=== PATIENT | male | born 1990 | race Caucasian/White ===

== ENCOUNTER 2017-01-09 20:41 | Emergency (ER) | payer MEDICAID ==
[~2017-01-09] VITALS: Ht 185.4 cm; Wt 127.0 kg
[~2017-01-09 20:41] MED LIST: BACTRIM DS 8001 TA1 PO; BACTRIM DS 8001 TAB PO; CIPRO 500MG TA500 MG PO; DARVOCET-N 1001 EACH PO; FIORICET 325 MG1 TAB PO; IBU-6600 MG PO; KEFLEX 250MG.250 MG PO; KEFLEX 500MG.500 MG PO; MEDROL 4MG. DOSE4 MG PO; NAPROSYN500 M1 PO; NOMEDS *; PERCOCET 5/3251 EACH PO; PREDNISONE 20MG20 MG PO; RANITIDINE HCL150 MG PO; REGLAN 10 MG TA10 MG PO; ROBAXIN-750750 MG PO; TESSALON PERLE100 MG PO; ULTRAM50 MG PO; VIBRAMYCIN HYC100 MG PO; VICODIN HP1 TAB PO; ZITHROMAX Z-PA250 M1 PO
--- OUTSIDE RECORDS SUMMARY | 2017-01-09 20:55 | External Medical Summary Rpt ---
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 THYROID 2 [facility] STIMULATI INC INC NG HORMONE TSH BLOOD 52805 DESIRAE MERRILL COUNT 2 [facility] COMPLETE INC INC AUTO&AUTO DIFRNTL WBC CYANOCOBA 01966 DESIRAE MERRILL CORETTA 2 [facility] VITAMIN INC INC B-12 RPR&REFIT 71029 [place] G 1 VISION SPECTACLE S EXCEPT APHAKIA FRAMES V2020 [facility] PURCHASES 1 VISION 1 VISN V2103 [place] PLANO 1 VISION TO+/-4.00 D SPHER 0.12-2.00 D CYL EA OPHTH 10968 [place] MEDICAL 1 VISION XM&EVAL COMPRHNSV ESTAB PT 1/> TDAP 31898 DESIRAE MERRILL VACCINE 7 1 IA Super Derivatives [facility] YRS/> IM CENTER CENTER ABEL 40953 DESIRAE MERRILL VACCINE 1 IA ReliOn LIVE FOR CENTER CENTER SUBCUTANE OUS USE MCV4 73928 DESIRAE MERRILL MENACWY 1 IA Super Derivatives [facility] CONJ VACC CENTER CENTER GRPS ACYW-135 IM USE URNLS DIP 77291 DESIRAE MERRILL 1 [facility] STICK/TAB INC INC LET REAGENT AUTO MICROSCOP Y IAADI 64807 DESIRAE DESIRAE INFFLUENZ 9 [facility] A A VIRUS INC INC IAADI 73401 DESIRAE MERRILL INFLUENZA 9 [facility] B VIRUS INC INC IAADI 18897 DESIRAE MERRILL INFFLUENZ 9 [facility] A A VIRUS INC INC IAADI 44151 DESIRAE MERRILL INFLUENZA 9 [facility] [place] [address] DESIRAE MERRILL STREPTOCO 9 [facility] CCUS INC INC GROUP A CUL BACT 66811 DESIRAE MERRILL XCPT 9 [facility] URINE INC INC BLOOD/STO OL AEROBIC ISOL 3D 15604 DESIRAE MERRILL RENDERING 9 [facility] INC INC W/INTERP& POSTPROC DIFF WORK STATION CT PELVIS 57570 DESIRAE MERRILL W/O 9 [facility] [place] [address] [place] ANN-MARIE, ABDOMEN 9 MEDICAL JOSE P W/O IMAGING CONTRAST ASSOCIATE MATERIAL S BLOOD 73288 DESIRAE MERRILL COUNT 9 [facility] COMPLETE INC INC AUTO&AUTO DIFRNTL WBC OPHTH 51997 [facility] MEDICAL 9 VISION REMEDIOS M XM&EVAL COMPRHNSV ESTAB PT 1/> 1 VISN V2103 [place], PLANO 9 VISION REMEDIOS M TO+/-4.00 D SPHER 0.12-2.00 D CYL EA FRAMES V2020 [place], PURCHASES 9 VISION REMEDIOS M FITTING 19629 [place], SPECTACLE 9 VISION REMEDIOS M [place] [address] DESIRAE MERRILL STREPTOCO 9 [facility] CCUS INC INC GROUP A IAADI 00008 DESIRAE MERRILL INFLUENZA 9 [facility] B VIRUS INC INC IAADI 13948 DESIRAE MERRILL INFFLUENZ 9 [facility] A A VIRUS INC INC CLOSURE 8659 DESIRAE MERRILL SKIN&SUBC 8 [facility] UTANEOUS INC INC TISSUE OTHER SITES ANTIBODY 99742 DESIRAE MERRILL HERPES 8 [facility] SMPLX INC INC TYPE 1 ANTIBODY 29889 DESIRAE MERRILL VIRUS NOT 8 [facility] INC INC ELSEWHERE SPECIFIFE D GASTRIC 81077 [place] JESUS, EMPTYING 8 RADIOLOGY J IMAGING STUDY OPHTH 67887 DUC XAVIER, MEDICAL 8 PRATIMA V PRATIMA V XM&EVAL COMPRHNSV ESTAB PT 1/> THER 52414 DESIRAE MERRILL PROPH/DX 8 [facility] NJX EA INC INC SEQL IV P[place] SBST/[place] [address] DESIRAE MERRILL TRACT UPR 8 [facility] W/SM INT INC INC [place] [address] HEATHER JACOBSEN, UPR W/WO 8 MEDICAL JOSE P GLUCOSE IMAGING W/SM ASSOCIATE INTEST Tiffani FOLLW-THR U THER 57542 DESIRAE MERRILL PROPH/DX 8 [facility] NJX INC INC SUBQ/IM IV NFS 85026 DESIRAE MERRILL THER 8 [facility] PROPH/DX INC INC 1ST >1 HR CREATINE 20081 DESIRAE MERRILL KINASE MB 8 [facility] FRACTION INC INC ONLY BASIC 31501 DESIRAE MERRILL METABOLIC 8 [facility] PANEL INC INC CALCIUM TOTAL ECG 15731 DESIRAE MERRILL ROUTINE 8 [facility] ECG INC INC W/LEAST 12 LDS TRCG ONLY W/O I&[place] [address] DESIRAE MERRILL TROPONIN 8 [facility] QUANTITAT INC INC DARRYL ECG 21998 DESIRAE GERSON, ROUTINE 8 [facility] ECG HOSPITAL W/LEAST PROF SERV 12 LDS I&R ONLY RHYTHM 67883 DESIRAE MERRILL ECG 1-3 8 [facility] LEADS INC INC TRACING ONLY W/O I&R RADIOLOGI 12345 DESIRAE MERRILL C EXAM [address] [facility] CHEST 2 INC INC VIEWS FRONTAL&L ATERAL BLOOD 00302 DESIRAE MERRILL COUNT 8 [facility] COMPLETE INC INC AUTO&AUTO DIFRNTL WBC CREATINE 29248 DESIRAE MERRILL KINASE 8 [facility] TOTAL INC INC HEPATBL 03970 HEATHER TINAJEROKDAEN DUX SYS 8 MEDICAL JOSE P IMG IMAGING GLBLDR ASSOCIATE S OBSERVATI 35787 [place] IGGY ON CARE 8 [facility], DISCHARGE INTERNAL ALONSO MED MANAGEMEN T RADEX ABD 10479 HEATHER ELIASUTCHER, COMPL 8 MEDICAL PADMINI AQT ABD IMAGING W/S/E/D ASSOCIATE VIEWS 1 S VIEW CH INITIAL 48797 [place] TERESAE OBSERVATI 8 GORE JR, ON INTERNAL ALONSO CARE/DAY MED 30 [place] [address] DESIRAE MERRILL ABDOMINAL [address] [facility] REAL INC INC TIME W/IMAGE LIMITED SBSQ 30848 [facility] 8 [facility] CARE/DAY URGENT 35 [place] [address] [facility] AMYLASE 8 [facility] COMPREHEN 14159 [facility] SIVE [address] [facility] [address] PELVIS 97352 CN[facility] LUZMARIA MONTALVO, 8 RADIOLOGY ANDREE D W/[place] [address] [facility] LIPASE [address] [place] [address] CN[facility] LUZMARIA MONTALVO, ABDOMEN 8 RADIOLOGY ANDREE D W/CONTRAS T MATERIAL URNLS DIP [address] STICK/TAB LET REAGENT AUTO MICROSCOP Y BLOOD 13514 [facility] COUNT 8 [facility] COMPLETE AUTO&AUTO DIFRNTL WBC SBSQ [address] CARE/DAY URGENT 35 TREATMENT MINUTES ASSOC SBSQ [address] CARE/DAY URGENT 35 TREATMENT MINUTES ASSOC PRESSURIZ 97306 DESIRAE MERRILL ED/NONPRE 8 [facility] SSURIZED INC INC INHALATIO N TREATMENT RADIOLOGI 20978 HEATHER Ramu JACOBSEN EXAM 8 MEDICAL JOSE P CHEST 2 IMAGING VIEWS ASSOCIATE FRONTAL&L S ATERAL ECG 77863 JADIEL FISH 8 [facility] W/LEAST PROF SERV 12 LDS I&R ONLY ECG 39284 DESIRAE MERRILL ROUTINE 8 [facility] ECG INC INC W/LEAST 12 LDS TRCG ONLY W/O I&R RADIOLOGI 95694 HEATHER Ramu MASON EXAM 8 MEDICAL PADMINI CHEST 2 IMAGING VIEWS ASSOCIATE FRONTAL&L S ATERAL RADIOLOGI 62972 HEATHER Ramu JACOBSEN 8 MEDICAL JOSE P EXAMINATI IMAGING ON KNEE ASSOCIATE 1/2 VIEWS S IAADIADOO 95813 [place] FORTINOS[place], 8 [facility] [place] [address] DESIRAE DESIRAE STREPTOCO 8 [facility] CCUS INC INC GROUP A RADIOLOGI 50246 DESIRAE DESIRAE C 8 [facility] EXAMINATI INC INC ON TIBIA & FIBULA 2 VIEWS RADIOLOGI 99639 DESIRAE DESIRAE C 8 [facility] EXAMINATI INC INC ON KNEE 3 VIEWS APPLICATI 93.54 GAMAL A ON OF COLETTE GLORIA MD Encounters Encounter Start End Date Code Location Performer Type Date EMERGENCY 41620 DESIRAE 5 5 [facility] DEPARTMEN INC T VISIT LOW/MODER SEVERITY HOSPITAL DESIRAE - [address] [facility] OUTPATIEN INC T EMERGENCY 91105 JIAN GUERRA DEPT 4 4 VISIT HIGH SEVERITY& THREAT FUNCJ EMERGENCY 56517 BARRY HITCHCOCK 4 4 [facility]AN[facility]IT [facility] DEPARTMEN T VISIT HIGH/URGE NT SEVERITY EMERGENCY 72464 BARRY HITCHCOCK 4 4 [facility] DEPARTMEN T VISIT MODERATE SEVERITY EMERGENCY 57621 ALFARIS ALFARIS 4 4 [facility] DEPARTMEN T VISIT HIGH/URGE NT SEVERITY Emergency JJ Alfredo MD (ER) 3 22:25 3 00:38 [facility] Emergency JJ Hitchcock MD (ER) 3 22:46 3 00:04 [facility] Emergency JJ Hitchcock MD (ER) 3 20:53 3 21:33 [facility] Emergency JJ Alfredo MD (ER) 3 09:33 3 09:58 [facility] Emergency JJ ALVARENGA (ER) 3 11:23 3 14:30 [facility] Emergency JJ Giron (ER) 3 07:30 3 07:34 [facility] Alonso E. Emergency JJ CHUN MD (ER) 3 12:43 3 14:48 [facility] OFFICE 31925 CLAUDIARICKIE TAYLOR OUTPATIEN 2 2 SANDER SANDER T VISIT 10 MINUTES OFFICE 40489 BESSON BESSON OUTPATIEN 2 2 ALLI ALLI T VISIT 15 MINUTES OFFICE 59848 BESSON BESSON OUTPATIEN 2 2 ALLI ALLI T VISIT 15 MINUTES OFFICE 57048 BESSON BESSON OUTPATIEN 2 2 ALLI ALLI T VISIT 15 MINUTES OFFICE 51784 BESSON BESSON OUTPATIEN 2 2 ALLI ALLI T VISIT 15 MINUTES OFFICE 50420 BESSON BESSON OUTPATIEN 2 2 ALLI ALLI T VISIT 15 MINUTES EMERGENCY 28353 [facility] DEPT 2 2 HOSP VISIT [facility] HIGH LE SEVERITY& THREAT [facility] - 2 2 HOSPITAL OUTPATIEN & T STMARY'S H EMERGENCY 61282 OZYUREKOG VIDYAKOG 2 2 EVELYN LENNOX EVELYN LENNOX DEPARTMEN T VISIT HIGH/URGE NT SEVERITY EMERGENCY 48971 [facility] 2 2 HOSPITAL DEPARTMEN & T VISIT STMARY'S MODERATE H SEVERITY OFFICE 18153 MCKEMIE MCKEMIE OUTPATIEN 2 2 JR LEIA JR LEIA T VISIT 15 MINUTES OFFICE 24311 BESSON BESSON OUTPATIEN 2 2 ALLI ALLI T VISIT 15 MINUTES HOSPITAL DESIRAE - 2 2 [facility] OUTPATIEN INC T OFFICE 91268 BESSON BESSON OUTPATIEN 2 2 ALLI ALLI T VISIT 25 MINUTES HOSPITAL DESIRAE - 1 1 [facility] OUTPATIEN INC T EMERGENCY 52264 HENRY HITCHCOCK 1 1 EMERGENCY RANJIT DEPARTMEN SERVICES T VISIT HIGH/URGE NT SEVERITY EMERGENCY 84108 DESIRAE [address] [facility] DEPARTMEN INC T VISIT LIMITED/M INOR PROB OFFICE 52435 [place] BESSON OUTPATIEN 1 1 GORE ALLI T VISIT INTERNAL 15 MED MINUTES HOSPITAL DESIRAE - [address] [facility] OUTPATIEN INC T EMERGENCY 19671 DESIRAE [address] [facility] DEPARTMEN INC T VISIT MODERATE SEVERITY EMERGENCY 08852 HENRY SHI 1 1 EMERGENCY DEPARTMEN SERVICES T VISIT HIGH/URGE NT SEVERITY OFFICE 20241 [place] CLAUDIA OUTPATIEN 0 0 KELSEA BOUCHER T VISIT INTERNAL 15 MEDI MINUTES EMERGENCY 97534 HENRY HITCHCOCK DEPT 0 0 EMERGENCY RANJIT VISIT SERVICES HIGH SEVERITY& THREAT FUNCJ OFFICE 14500 [place] ANUSHA OUTPATIEN 0 0 KELSEA NAN T VISIT INTERNAL 25 MEDI MINUTES OFFICE 64603 [place] BESSON, OUTPATIEN 0 0 KELSEA RICKY A T VISIT INTERNAL 15 MED MINUTES OFFICE 22161 [place] MCKEMIE OUTPATIEN 0 0 KELSEA SALDANA, T VISIT INTERNAL ALONSO F 15 MED MINUTES OFFICE 09630 [place] BESSON, OUTPATIEN 9 9 KEL[place] RICKY A T VISIT INTERNAL 15 MED MINUTES HOSPITAL DESIRAE - 9 9 [facility] OUTPATIEN INC T HOSPITAL DESIRAE - 9 9 [facility] OUTPATIEN [facility] T OFFICE 52179 [place] LANIEMIE OUTPATIEN 9 9 KELSEA SALDANA, T VISIT INTERNAL ALONSO F 15 MED MINUTES EMERGENCY 83145 HENRY ANN, DEPT 9 9 EMERGENCY MATTHEW VISIT SERVICES O HIGH SEVERITY& ASSOCIATE THREAT S FUNCJ EMERGENCY 23735 DESIRAE [address] [facility] DEPARTMEN [facility] T VISIT MODERATE SEVERITY HOSPITAL DESIRAE - [address] [facility] OUTPATIEN [facility] T OFFICE 31546 [place] KAYLEY OUTPATIEN 9 9 GORE RICKY Pham T VISIT INTERNAL 15 MED MINUTES OFFICE 54722 [place] JAIME OUTPATIEN 9 9 [place] VARGAS T VISIT INTERNAL 15 MED MINUTES HOSPITAL DESIRAE - [address] [facility] OUTPATIEN [facility] T EMERGENCY 93105 DESIRAE [address] [facility] T VISIT LOW/MODER SEVERITY HOSPITAL DESIRAE - [address] [facility] OUTPATIEN [facility]ITAL DESIRAE - [address] [facility] OUTPATIEN [facility] T OFFICE 24771 [place] TERESAE OUTPATIEN 8 8 [place]EL[place] SALDANA T VISIT INTERNAL ALONSO F 10 MED MINUTES OFFICE 16939 [place] KAYLEY OUTPATIEN 8 8 GORE RICKY Pham T VISIT INTERNAL 25 MED MINUTES HOSPITAL AKIRAON - 8 8 [facility] T OFFICE 93022 ARACELI BOSTON- JR 8 8 BERYL CORDOBA ION KAREN KAREN NEW/ESTAB PATIENT 60 MIN OFFICE 78075 [facility] T VISIT INC 10 MINUTES HOSPITAL DESIRAE - [address] [facility] OUTPATIEN INC T OFFICE 38989 ALLRAN ALLRAN CONSULTAT 8 8 JR LES, CORRIE Roman NEW/ESTAB PATIENT 40 MIN HOSPITAL DESIRAE - 8 8 [facility] OUTPATIEN INC T EMERGENCY 61243 DESIRAE ANN, 8 8 [facility] O T VISIT PROF SERV MODERATE SEVERITY EMERGENCY 23288 DESIRAE DEPT 8 8 [facility] VISIT INC HIGH SEVERITY& THREAT FUNCJ OFFICE 58226 [place] [facility] 8 8 GORE RICKY A T VISIT INTERNAL 15 MED MINUTES OFFICE 09500 JARETH SANDOVAL [facility] [address] [facility] T VISIT INTERNAL 15 MED MINUTES HOSPITAL DESIRAE - [address] [facility] OUTPATIEN INC T EMERGENCY 33248 [facility] 8 [facility] C[facility] T VISIT PHYSICANS HIGH/URGE [place] NT PSC SEVERITY EMERGENCY 63148 [facility] 8 8 [facility] T VISIT MODERATE SEVERITY HOSPITAL [facility] - 8 8 [facility] T OFFICE 02775 [place] KAYLEY [facility] 8 8 GORE RICKY A T VISIT INTERNAL 15 MED MINUTES HOSPITAL DESIRAE - [address] [facility] OUTPATIEN INC T EMERGENCY 12809 DESIRAE [address] [facility] T VISIT MODERATE SEVERITY EMERGENCY 64086 DESIRAE [address] [facility] INC T VISIT LOW/MODER SEVERITY OFFICE [address] [facility] 8 8 JUSTIN JUSTIN T VISIT 15 MINUTES HOSPITAL DESIRAE - [address] [facility] OUTPATIEN INC T OFFICE 75735 [place] IGGY CHILDRESS 8 8 KEL[place] SALDANA T VISIT INTERNAL ALONSO F 15 MED MINUTES OFFICE 04740 FIOR GUTIERREZ 8 8 KELSEA Pham T VISIT INTERNAL 15 MED MINUTES HOSPITAL DESIRAE - [address] [facility] - 8 8 [facility] EMERGENCY 51577 DESIRAE 8 8 [facility] VISIT LIMITED/M INOR PROB EMERGENCY 03419 DESIRAE AGOSTO, 8 8 [facility] T VISIT PROF LILIANA TAVERA/MODER SEVERITY OFFICE [address] OUTPATIEN 8 8 JUSTIN ANDERSON T VISIT 15 MINUTES HOSPITAL DESIRAE - 8 8 [facility]
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
--- OUTSIDE RECORDS SUMMARY | 2017-01-09 20:58 | External Medical Summary Rpt ---
Author Author , KELTON MELARA Address Unknown Phone [email or web address] Data Care Team Providers Care Gis Instructor Name Role Phone ALFARIS MOH, ALFARIS Unavailable Unavailable J CARLOS BAKER JR, Unavailable Unavailable J CARLOS KHAN JR, J, Unavailable Unavailable Petr LEE CONRAD, BETINA, CONRAD, Unavailable Unavailable BETINA BESSON ALLI, BESSON Unavailable Unavailable ALLI BESSON ALLI, BESSON Unavailable Unavailable ALLI RICKY ZALDIVAR A, Unavailable Unavailable KAYLEY RICKY A JEMIMA ZARATE, JEMIMA ZARATE Unavailable Unavailable [facility]IN [facility], Unavailable Unavailable [facility] ISABELLA PAL, Unavailable Unavailable ISABELLA PAL ISABELLA PAL, Unavailable Unavailable ISABELLA PAL ISABELLA PADMINI, Unavailable Unavailable ISABELLA, PADMINI [facility], Unavailable Unavailable [facility] CLAUDIA SANDER, Unavailable Unavailable CLAUDIA SANDER CLAUDIA SANDER, Unavailable Unavailable CLAUDIA SANDER BARRY RANJIT, BARRY Unavailable Unavailable RANJIT BARRY RANJIT, BARRY Unavailable Unavailable RANJIT ANGE SHI, ANGE JOSE GUADALUPE Unavailable Unavailable ANDREE MONTALVO, Unavailable Unavailable ANDREE MONTALVO [facility] Unavailable Unavailable [place], [facility] Unavailable Unavailable [place], [facility] Unavailable Unavailable INC, [facility] Unavailable Unavailable HOSPITAL P, [facility] SAM SANDOVAL HARVEY, Unavailable Unavailable SAM VASQUEZ, DICKSON VASQUEZ Unavailable Unavailable ANUSHA KARYNA, ANUSHA Unavailable Unavailable NAN ARACELIBERYL, Unavailable Unavailable DEREK STAFFORD, [facility] Unavailable Unavailable [place], [facility] & Unavailable Unavailable [facility], [facility] Unavailable Unavailable [facility], [facility] GERSON, NAYELI E, Unavailable Unavailable GERSON, NAYELI E [facility] Unavailable Unavailable [facility], [facility] Unavailable Un[facility] [place] JUAN, CALVIN Unavailable Unavailable JUAN [facility] Unavailable Unavailable SERVICES, [facility] BROCK CLA, Unavailable Unavailable BROCK CLA BROCK CLA, Unavailable Unavailable BROCK CLA MCKEMIE JR LEIA, Unavailable Unavailable MCKEMIE JR LEIA MCKEMIE JR LEIA, Unavailable Unavailable MCKEMIE JR LEIA MCKEMIE JR, CHANDAN Unavailable Unavailable F, IGGY SALDANA, CHANDAN F TESFAYE BARONE, Unavailable Unavailable TESFAYE BARONE EMMETT P, Unavailable Unavailable JOSE JACOBSEN OZYUREKOGLU LENNOX, Unavailable Unavailable OZYUREKOGLU LENNOX OZYUREKOGLU LENNOX, Unavailable Unavailable OZYUREKOGLU LENNOX [id number], Unavailable Unavailable [id number] Unavailable Unavailable [id number] [address] [id number], [facility] [address] # [id number] [facility], Unavailable Unavailable [facility] JOHN T, SURENDRA, Unavailable Unavailable PRATIMA DANIELSON V, Unavailable Unavailable PRATIMA XAVIER V SOKAN, MATTHEW O, Unavailable Unavailable SOKAN, MATTHEW O [facility] Unavailable Unavailable [facility] JIAN GUERRA, JIAN GUERRA Unavailable Unavailable JIAN GUERRA, JIAN GUERRA Unavailable Unavailable Purpose Continuity of Care Document - 08-25-2007 through 2016 Problems Code Diagnosis DOS Provider Status 7231 CERVICALGIA 06-22-2014 [facility] 7245 UNSPECIFIED 06-22-2014 [facility] P E8889 UNSPECIFIED 06-22-2014 [facility] P 5990 URINARY 10-11-2013 JIAN GUERRA TRACT INFECTION SITE NOT SPECIFIED 88698 HEMATURIA 10-11-2013 ISABELLA UNSPECIFIED PAL 7881 DYSURIA 10-11-2013 JIAN GUERRA 67409 ABDOMINAL 10-11-2013 ISABELLA PAIN, PAL UNSPECIFIED SITE 37978 CHEST PAIN 09-22-2013 ISABELLA UNSPECIFIED PAL 79804 OTHER CHEST 09-22-2013 BARRY RANJIT PAIN 63048 ASTHMA, 09-14-2013 BARRY RANJIT UNSPECIFIED , UNSPECIFIED STATUS 5110 PLEURISY 09-14-2013 BARRY RANJIT WITHOUT MENTION EFFUS/CURRE NT TB 7804 DIZZINESS 09-14-2013 BARRY RANJIT AND GIDDINESS 8832 OPEN WOUND 01-03-2012 CLAUDIA OF FINGER SANDER WITH TENDON INVOLVEMENT V5832 ENCOUNTER 10-28-2011 BESPRISCILLA ALLI FOR REMOVAL OF SUTURES 9594 INJURY 10-25-2011 BESSON ALLI OTHER AND UNSPECIFIED HAND EXCEPT FINGER 8830 OPEN WOUND 10-17-2011 BROCK FINGER CLA WITHOUT MENTION COMPLICATIO N 8831 OPEN WOUND 10-17-2011 OZYUREKOGLU OF FINGER, LENNOX COMPLICATED E9174 STRIKE 10-17-2011 OZYUREKOGLU AGNST/STRUC LENNOX K ACC OTH STATNRY OBJ W/O FALL 33019 ESOPHAGEAL 10-11-2011 IGGY SALDANA REFLUX LEIA 07294 VOMITING 09-07-2011 BESSON ALLI ALONE 26133 INSOMNIA 08-03-2011 BESSON ALLI UNSPECIFIED 33726 OTHER 08-03-2011 [facility] FATIGUE INC 58428 REGULAR 02-20-2011 [facility] V069 NEED PROPH 12-25-2010 [facility] CO VACCINATION HEALTH W/UNSPEC CENTER COMB VACCINE 9224 CONTUSION 12-21-2010 [facility] EMERGENCY ORGANS SERVICES 463 ACUTE 09-25-2010 [facility] TONSILLITIS [facility] INTERNAL MED 490 BRONCHITIS 09-25-2010 [facility] NOT VALLEY SPECIFIED INTERNAL ACUTE OR MED CHRONIC 30113 PHOTOKERATI 07-10-2010 [facility] 0999 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 INTERNAL MEDI 28345 OTH 04-27-2010 [facility] MIGRAINE [facility] W/O INTERNAL INTRACTABL MEDI W/STATUS MIGRAINOSUS 9949 OTHER 04-27-2010 [facility] EFFECTS OF VALLEY EXTERNAL INTERNAL CAUSES MEDI 89622 MIGRAINE 04-21-2010 [facility] UNSP W/O EMERGENCY INTRACT W/O SERVICES STATUS MIGRAINOSUS 7802 SYNCOPE AND 04-21-2010 [facility] COLLAPSE EMERGENCY SERVICES 6820 CELLULITIS 10-03-2009 [facility] AND ABSCESS VALLEY OF FACE INTERNAL MEDI 7061 OTHER ACNE 10-03-2009 [facility] INTER[facility] 04551 ABDOMINAL 10-03-2009 [facility] PAIN RIGHT VALLEY LOWER INTERNAL QUADRANT MEDI 3829 UNSPECIFIED 08-04-2009 [facility] OTITIS VALLEY MEDIA INTERNAL MED 5589 OTH&UNSPEC 08-04-2009 [facility] NONINFECTIO VALLEY US INTERNAL GASTROENTER MED ITIS&COLITI S 4739 UNSPECIFIED 07-21-2009 [facility] SINUSITIS [facility] INTERNAL MED 86203 HYPERTROPHY 07-21-2009 [facility] OF TONSILS VALLEY ALONE INTERNAL MED 4871 INFLUENZA 04-11-2009 [facility] WITH OTHER [place] RESPIRATORY INTERNAL MED MANIFESTATI ONS 462 ACUTE 02-27-2009 [facility] PHARYNGITIS [place] INTERNAL MED 7291 UNSPECIFIED 02-27-2009 [facility] MYALGIA [place] AND INTERNAL MYOSITIS MED 22276 FEVER 02-27-2009 [facility] UNSPECIFIED [place] INTERNAL MED 2892 NONSPECIFIC 02-06-2009 [facility] EMERGENCY SERVICES LYMPHADENIT ASSOCIATES IS 8472 LUMBAR 11-11-2008 [facility] SPRAIN AND VALLEY STRAIN INTERNAL MED 4659 ACUTE URIS 08-31-2008 [facility] OF [place] UNSPECIFIED INTERNAL SITE MED 18184 HERPETIC 02-19-2008 [facility] INFECTION VALLEY OF PENIS INTERNAL MED V745 SCREENING 02-19-2008 [facility] EXAMINATION [place] FOR INTERNAL VENEREAL MED DISEASE 01491 OTHER 02-09-2008 [facility] PENILE [place] ANOMALIES INTERNAL MED 01814 NAUSEA WITH 12-16-2007 [facility] [place] VOMITING RADIOLOGY 35925 ABDOMINAL 10-09-2007 [facility] PAIN RIGHT [place] UPPER INTERNAL QUADRANT MED 72881 CHOLECYSTIT 10-01-2007 [facility] [place], [place] UNSPECIFIED INTERNAL MED 19669 ABDOMINAL 09-30-2007 [facility] PAIN, [facility] EPIGASTRIC INC 60501 UNSPECIFIED 09-26-2007 [facility] N TETER[place] PSC 7856 ENLARGEMENT 09-26-2007 [facility] [place] OF LYMPH RADIOLOGY NODES 2774 DISORDERS 09-25-2007 [facility] [place] [facility] EXCRETION TREATMENT ASSOC 4019 UNSPECIFIED 09-25-2007 [facility] HYPERTENSIO URGENT N TREATMENT ASSOC 7824 JAUNDICE 09-25-2007 [facility] URGENT TREAT[facility] ASSOC 4660 ACUTE 09-08-2007 [facility] BRONCHITIS [facility] INC 01667 CLOSED 09-08-2007 [facility] FRACTURE OF MEM HOSP UPPER END INC OF FIB[place] 96140 CLOSED 09-08-2007 [facility] IMAGING UNSPECIFIED ASSOCIATES PART OF [place] 0340 STREPTOCOCC 09-01-2007 [facility] [place] SORE [place] THROAT INTERNAL MED 7806 FEVER & OTH 09-01-2007 [facility] [place] PHYSIOLOGIC INTERNAL [place] [address] PAIN IN 08-25-2007 [place] [facility] MEDICAL LOWER LEG [facility] 7295 PAIN IN 08-25-2007 [facility] SOFT [facility] TISSUES OF INC LIMB Medications Na ND Rx Da Fi Fi Am Da Di Ph RX Ph St me C No te ll ll ou ys ag ar # ys at rm s nt no ma ic us Or Da si cy ia de te s n re d ME 00 04 04 21 6 RI 87 BE Ac TH 60 -1 -1 .0 TE 89 SS ti YL 34 2- 2- 00 88 ON ve IN 59 20 20 AI ED [address] NI 5 PH EP SO AR HE LO MA N NE CY A 4 03 MG 93 8 DO # SE 03 PK 93 AZ 00 04 04 6. 5 RI 87 BE Ac IT 78 -1 -1 00 TE 89 SS ti HR 11 2- 2- 0 89 ON ve OM 49 20 20 AI YC [address] IN 8 PH EP AR HE 25 MA N 0 CY A MG 03 TA 93 BL 8 ET # 03 93 IN 50 11 01 2 30 30 RI 85 MC Ac OP 11 -1 -0 .0 TE 80 KE ti RA 10 2- 7- 00 10 IN ve NO 46 20 20 AI E LO 80 10 11 D JR L 3 PH 20 AR WI MA LL MG CY IA M TA 03 F BL 93 ET 8 # 03 93 IN 50 11 11 2 30 30 RI 85 MC Ac OP 11 -1 -1 .0 TE 80 KE ti RA 10 2- 2- 00 10 IN ve NO 46 20 20 AI E LO 80 10 10 D JR L 3 PH 20 AR WI MA LL MG CY IA M TA 03 F BL 93 ET 8 # 03 93 HERMAN 00 04 04 20 10 RI 83 HU Ac LF 60 -2 -2 .0 TE 06 NT ti AM 35 0- 0- 00 43 ER ve ET 78 20 20 AI HO 12 10 10 D NA XA 8 PH NC ZO AR Y LE MA C -T CY MP 03 DS 93 8 TA # BL 03 ET 93 IN 00 04 04 15 4 RI 83 HU Ac OC 09 -2 -2 .0 TE 06 NT ti HL 39 0- 0- 00 44 ER ve OR 64 20 20 AI PE 30 10 10 D NA RA 1 PH NC ZI AR Y NE MA C 5 CY MG 03 93 TA 8 BL # ET 03 93 00 04 04 5 46 25 RI 83 HU Ac 78 -2 -2 .6 TE 06 NT ti 17 0- 0- 00 63 ER ve 05 20 20 AI 45 10 10 D NA 9 PH NC AR Y MA C CY 03 93 8 # 03 93 AZ 59 02 02 00 6. [...] TE 02 NT ti IN 12 5- 1 00 17 ER ve IR 17 20 20 AI 66 10 10 D NA 30 0 PH NC 0 AR Y MG M C #3 CA 93 PS 8 UL E IN 00 02 02 00 12 3 RI 82 HU Ac OM 78 -0 -1 .0 TE 02 NT ti ET 11 16 ER ve CERNA 83 20 20 AI ZI 00 10 10 D NA NE 1 PH NC AR Y 25 M C #3 MG 93 8 TA BL ET TA 00 10 11 00 10 5 RI 80 MC Ac IN 00 -2 -0 .0 TE 59 KE ti FL 40 7- 5- 00 71 IN ve U 80 20 20 AI E 75 08 09 09 D JR 5 PH MG AR WI M LL CA #3 IA PS 93 M UL 8 F E CI 00 08 09 00 20 10 RI 79 SO Ac IN 17 -2 -1 .0 TE 69 KA [...] AI ZA [address] IN 0 PH EP IN AR HE E [...] E 93 12 8 .5 MG CP 00 04 04 00 14 14 RI 72 No Ac 30 -1 -2 .0 TE 92 t ti 03 6- 4- 00 10 Av ve 70 20 20 AI ai 20 08 08 D la 1 PH bl AR e M #3 93 8 AB 59 04 04 00 45 30 RI 72 No Ac IL 14 -1 -2 .0 TE 92 t ti IF 80 6- 4- 00 47 Av ve Y 00 20 20 AI ai 5 71 08 08 D la MG 3 PH bl AR e TA M BL #3 ET 93 8 SE 59 04 04 00 15 30 RI 72 No Ac RT 76 -1 -2 .0 TE 91 t ti RA 24 5- 4- 00 57 Av ve LI 91 20 20 AI ai NE 00 08 08 D la 1 PH bl HC AR e L M 10 #3 0 93 MG 8 TA BL ET IN 37 04 04 00 28 28 RI 72 No Ac IL 00 -1 -2 .0 TE 91 t ti OS 00 5- 4- 00 58 Av ve EC 45 20 20 AI ai 50 08 08 D la OT 3 PH bl C AR e 20 M .6 #3 93 MG 8 TA BL ET CE 00 03 04 00 12 3 RI 72 No Ac PH 09 -1 -1 .0 TE 43 t ti AL 33 3- 7- 00 13 Av ve EX 14 20 20 AI ai IN 50 08 08 D la 1 PH bl 25 AR e 0 M MG #3 93 CA 8 PS UL E AM 00 03 04 00 20 10 RI 72 No Ac OX 09 -1 -1 .0 TE 49 t ti IC 32 8- 7- 00 18 Av ve IL 26 20 20 AI ai LI 40 08 08 D la N 1 PH bl 87 AR e 5 M MG #3 93 TA 8 BL ET 00 03 04 00 4. 1 RI 72 No Ac 60 -1 -1 00 TE 43 t ti 35 3- 7- 0 12 Av ve 46 20 20 AI ai 82 08 08 D la 8 PH bl AR e M #3 93 8 DO 00 03 04 00 14 7 RI 72 No Ac XY 14 -2 -1 .0 TE 61 t ti CY 33 5- 0- 00 76 Av ve CL 14 20 20 AI ai IN 20 08 08 D la E 5 PH bl HY AR e CL M AT #3 E 93 10 8 0 MG CA P IN 00 03 04 00 20 5 RI 72 No Ac OM 60 -2 -1 .0 TE 57 t ti ET 35 4- 0- 00 72 Av ve CERNA 43 20 20 AI ai ZI 82 08 08 D la NE 1 PH bl AR e 25 M #3 MG 93 8 TA BL ET ME 00 03 04 00 21 6 RI 72 No Ac TH 60 -2 -1 .0 TE 61 t ti YL 34 6- 0- 00 77 Av ve IN 59 20 20 AI ai ED 31 [...] ent ider Refu lity Give sed n TDAP 07- 115 VINH No VINH 2-20 DESTINEE DESTINEE VACC 11 CO CO INE HEAL HEAL 7 TH TH YRS/ CENT CENT > IM ER ER ABEL 07- 21 VINH No VINH VACC 2-20 DESTINEE DESTINEE INE 11 CO CO LIVE HEAL HEAL FOR TH TH CENT CENT SUBC ER ER UTAN EOUS USE MCV4 07- 114 Meni VINH No VINH [...] IM ion USE not spec ifie d. Procedures Procedure [place] [address] [place] [facility] CERVICAL 5 MEDICAL PAL SPINE W/[place] [address] ISABELLA ISABELLA ABDOMEN & 4 PAL PAL PELVIS W/O CONTRAST MATERIAL ECG 47052 BARRY ARELLANOEY ROUTINE 4 RANJIT RANJIT ECG W/LEAST 12 LDS I&R ONLY RADIOLOGI 81230 ISABELLA ISABELLA C EXAM 4 PAL PAL CHEST 2 VIEWS FRONTAL&L ATERAL INJECTION J0690 [facility] 2 HOSP HOSP CEFAZOLIN [place] SODIUM LE LE 500 MG INJECTION J0696 [address] CEFTRIAXO & & NE SODIUM STMARY'S STMARY'S PER 250 H H MG INJECTION J2270 [facility] MORPHINE 2 HOSP HOSP SULFATE [place] UP TO 10 LE LE MG THERAPEUT 70954 [facility] IC 2 HOSP HOSP PROPHYLAC [place] TIC/DX LE LE INJECTION SUBQ/IM SMPL [address] SCALP/NEC & & K/AX/TERRENCE STMARY'S STMARY'S T/TRUNK H H 2.6-7.5CM RPR/ADVMN 93514 ZULEIKA OT T FLXR 2 EVELYN LENNOX HIGH TDN N/Z/2 W/O FR GRAFT EA TENDON REPAIR [address] TENDON & & FINGER STMARY'S STMARY'S W/O GRAFT H H EACH RCNSTJ 73718 OZYADA OZYUREKOG TENDON 2 EVELYN LENNOX EVELYN LENNOX HORTENCIA EACH W/LOCAL TISSUES SPX RADEX 50030 ONOFRE ELLIOT ONOFRE ELLIOT HAND 2 MINIMUM 3 VIEWS COMPREHEN 65187 [facility] SIVE 2 [facility] [place] [address] [facility] THYROID 2 [facility] STIMULATI INC INC NG HORMONE TSH CYANOCOBA 81134 [facility] CORETTA 2 [facility] VITAMIN INC INC B-12 BLOOD 18709 [facility] COUNT 2 [facility] COMPLETE INC INC AUTO&AUTO DIFRNTL WBC FRAMES V2020 [facility] [place] PURCHASES 1 VISION 1 VISN V2103 [facility] PLANO 1 VISION TO+/-4.00 D SPHER 0.12-2.00 D CYL EA RPR&REFIT 36418 [facility] [place] G 1 VISION SPECTACLE S EXCEPT APHAKIA OPHTH 81505 [facility] CHRISTINA MEDICAL 1 VISION XM&EVAL COMPRHNSV ESTAB PT 1/> TDAP 20521 [facility] VACCINE 7 1 Trendy Mondays [facility] YRS/> IM CENTER CENTER ABEL 14171 [facility] VACCINE 1 TrackMaven LIVE FOR CENTER CENTER SUBCUTANE OUS USE MCV4 68141 [facility] MERRILL MENACWY 1 Trendy Mondays [facility] CONJ VACC CENTER CENTER GRPS ACYW-135 IM USE URNLS DIP 84681 [facility]LL 1 [facility] STICK/TAB INC INC LET REAGENT AUTO MICROSCOP Y IAADI 16663 [facility] INFLUENZA 9 [facility] B VIRUS INC INC IAADI 79035 [facility] MERRILL INFFLUENZ 9 MEM [facility] A A VIRUS INC INC IAADI 23815 [facility] MER[facility]LL INFFLUENZ 9 [facility] A A VIRUS INC INC IAADI 58432 [facility] INFLUENZA 9 [facility] [place] [address] [facility] MER[facility] STREPTOCO 9 [facility] CCUS INC INC GROUP A CUL BACT 74040 [facility] XCPT 9 [facility] URINE INC INC BLOOD/STO OL AEROBIC ISOL 3D 10235 [place] ANN-MARIE, RENDERING 9 MEDICAL JOSE P IMAGING W/INTERP& ASSOCIATE POSTPROC S DIFF WORK STATION CT PELVIS 44325 [place] ANN[place], W/O 9 MEDICAL JOSE [place] [address] [facility] TOVARON ABDOMEN 9 [facility] W/O INC INC CONTRAST MATERIAL BLOOD 50251 [facility] COUNT 9 [facility] COMPLETE INC INC AUTO&AUTO DIFRNTL WBC OPHTH 28910 [facility] MEDICAL 9 VISION REMEDIOS M XM&EVAL COMPRHNSV ESTAB PT 1/> 1 VISN V2103 [facility] PLANO 9 VISION REMEDIOS Dietrich TO+/-4.00 D SPHER 0.12-2.00 D CYL EA FRAMES V2020 [facility] PURCHASES 9 VISION REMEDIOS M FITTING 15511 [place], SPECTACLE 9 VISION REMEDIOS Dietrich S XCPT APHAKIA MONOFOCAL IAADI 23454 [facility] INFFLUENZ 9 [facility] A A VIRUS INC INC IAADI 78164 [facility] INFLUENZA 9 [facility] [place] [address] [facility] MERRILL STREPTOCO 9 [facility] CCUS INC INC GROUP A CLOSURE 8659 [facility] SKIN&SUBC 8 [facility] UTANEOUS INC INC TISSUE OTHER SITES ANTIBODY 93090 [facility] HERPES 8 [facility] SMPLX INC INC TYPE 1 ANTIBODY 21918 [facility] VIRUS NOT 8 [facility] INC INC ELSEWHERE SPECIFIFE D GASTRIC 19278 [facility] [place] JESUS, EMPTYING 8 RADIOLOGY J IMAGING STUDY OPHTH 64848 DUC XAVIER, MEDICAL 8 PRATIMA V PRATIMA V XM&EVAL COMPRHNSV ESTAB PT 1/> [place] [address] [facility] TRACT UPR 8 [facility] W/SM INT INC [place] [address] YULIANA ARCHULETA W/WO 8 MEDICAL JOSE Estrella GLUCOSE IMAGING W/SM ASSOCIATE INTEST S FOLLW-THR U THER 36521 [facility] PROPH/DX 8 [facility] NJX EA INC INC SEQL IV PUSH SBST/DRUG THER 21997 [facility] PROPH/DX 8 [facility] NJX INC INC SUBQ/IM IV NFS 34377 [facility] THER 8 [facility] PROPH/DX INC INC 1ST >1 HR BASIC 32574 [facility] METABOLIC 8 [facility] PANEL INC INC CALCIUM TOTAL RADIOLOGI 38607 Ramu ARCHULETA EXAM 8 MEDICAL JOSE P CHEST 2 IMAGING VIEWS ASSOCIATE FRONTAL&L S ATERAL CREATINE 26189 [facility] KINASE 8 [facility] TOTAL INC INC ECG 94549 [facility] ROUTINE 8 [facility] ECG INC INC W/LEAST 12 LDS TRCG ONLY W/O I&R CREATINE 40127 [facility] MERRILL KINASE MB 8 [facility] [place] [address] [facility] TROPONIN 8 [facility] QUANTITAT INC INC DARRYL BLOOD 65365 [facility] COUNT 8 [facility] COMPLETE INC INC AUTO&AUTO DIFRNTL WBC RHYTHM 65974 [facility] MERRILL ECG 1-3 8 [facility] LEADS INC INC TRACING ONLY W/O I&R ECG 81552 [facility] NIETO, ROUTINE 8 [facility] W/LEAST PROF SERV 12 LDS I&R ONLY HEPATBL 18117 [facility] ARCHULETAX SYS 8 MEDICAL JOSE P IMG IMAGING GLBLDR ASSOCIATE S OBSERVATI 39012 [facility] MCKEMIE ON CARE 8 [facility], DIS[facility]GE INTERNAL [facility] MED MANAGEMEN T RADEX ABD 97975 HEATHER MASON, COMPL 8 MEDICAL PADMINI AQT ABD IMAGING W/S/E/D ASSOCIATE VIEWS 1 S VIEW CH INITIAL 04837 [facility]EMIE OBSERVATI 8 [facility], ON INTERNAL [facility] CARE/DAY MED 30 [place] [address] [facility], ABDOMINAL 8 MEDICAL PADMINI REAL IMAGING TIME ASSOCIATE W/IMAGE S LIMITED SBSQ [address] CARE/DAY URGENT 35 TREATMENT MINUTES ASSOC SBSQ [address] CARE/DAY URGENT 35 TREATMENT MINUTES ASSOC COMPREHEN 93297 [facility] SIVE 8 [facility] [place] [address] [facility] AMYLASE [address] [place] [address] [facility] [place] KATIA, ABDOMEN 8 RADIOLOGY ANDREE D W/[place] [address] [facility] LIPASE 8 [facility] BLOOD 80473 [facility] COUNT 8 [facility] COMPLETE AUTO&AUTO DIFRNTL WBC URNLS DIP [address] STICK/TAB LET REAGENT AUTO MICROSCOP Y CT PELVIS [address] W/CONTRAS T MATERIAL SBSQ [address] CARE/DAY URGENT 35 TREATMENT MINUTES ASSOC ECG 61789 [facility] MERRILL ROUTINE 8 [facility] ECG INC INC W/LEAST 12 LDS TRCG ONLY W/O I&R ECG 51060 [facility] NIETO, ROUTINE 8 [facility] W/LEAST PROF SERV 12 LDS I&R ONLY RADIOLOGI 04914 [facility] MERRILL C EXAM 8 [facility] CHEST 2 INC INC VIEWS FRONTAL&L ATERAL PRESSURIZ 37809 [facility] MER[facility]LL ED/NONPRE 8 [facility] SSURIZED INC INC INHALATIO N TREATMENT RADIOLOGI 26547 [facility] MERRILL C EXAM 8 [facility] CHEST 2 INC INC VIEWS FRONTAL&L ATERAL RADIOLOGI 44152 [facility] MER[facility]LL C 8 [facility] EXAMINATI INC INC ON KNEE 1/2 VIEWS IAADIADOO 47902 Jerica GUTIERREZ A STREPTOCO [place] [address] [facility] MERRILL STREPTOCO 8 [facility] CCUS INC INC GROUP A RADIOLOGI 24997 Ramu ARCHULETA 8 MEDICAL JOSE P EXAMINATI IMAGING ON TIBIA ASSOCIATE & FIBULA S 2 VIEWS RADIOLOGI 68559 Ramu ARCHULETA MEDICAL JOSE P EXAMINATI IMAGING ON KNEE 3 ASSOCIATE VIEWS S Encounters Encounter Start End Date Code Location Performer Type Date HOSPITAL [facility]IRAE - 5 5 [facility] T EMERGENCY 16847 DESIRAE SIMPSON 5 5 [facility] T VISIT P LOW/MODER SEVERITY EMERGENCY 10495 JIAN GUERRA DEPT 4 4 VISIT HIGH SEVERITY& THREAT FUNCJ EMERGENCY 74531 BARRY REDDY 4 4 RANJIT RANJIT [facility] T VISIT HIGH/URGE NT SEVERITY EMERGENCY 51948 BARRY REDDY 4 4 [facility] T VISIT MODERATE SEVERITY EMERGENCY 90328 ALFARIS ALFARIS 4 4 [facility] T VISIT HIGH/URGE NT SEVERITY OFFICE 23369 CLAUDIA [facility] 2 2 SANDER SANDER T VISIT 10 MINUTES OFFICE 87046 BESSON BESSON OUTPATIEN 2 2 ALLI ALLI T VISIT 15 MINUTES OFFICE 70336 B[facility]ON BESSON OUTPATIEN 2 2 ALLI ALLI T VISIT 15 MINUTES OFFICE 69231 BESSON BESSON OUTPATIEN 2 2 ALLI ALLI T VISIT 15 MINUTES OFFICE 72276 [facility]ON OUTPATIEN 2 2 ALLI ALLI T VISIT 15 MINUTES OFFICE 53189 BESSON BESSON OUTPATIEN 2 2 ALLI ALLI T VISIT 15 MINUTES EMERGENCY 63412 [facility] DEPT 2 2 HOSP VISIT [facility] HIGH LE SEVERITY& THREAT [facility] - 2 2 HOSPITAL [facility]PATIEN & [facility] 70574 [facility] 2 2 [facility]PITAL [facility]PART[facility] & [facility] SE[facility] EMERGENCY 13264 VINOD BROCK 2 2 CLA CLA DEPARTMEN T VISIT HIGH/URGE NT SEVERITY OFFICE 59077 [facility] M[facility] OUTPATIEN 2 2 JR LEIA JR LEIA T VISIT 15 MINUTES OFFICE 30992 [facility] 2 2 [facility] T VISIT 15 MINUTES OFFICE 07315 [facility] 2 2 [facility] T VISIT 25 MINUTES [facility] - 2 2 [facility] INC T EMERGENCY 17187 [facility] 1 1 [facility] DEPARTMEN INC T VISIT LIMITED/M INOR PROB [facility] - 1 1 [facility] OUTPATI[facility] INC T EMERGENCY 38754 HENRY REDDY 1 1 EMERGENCY [facility] DEPARTMEN SERVICES T VISIT HIGH/URGE NT SEVERITY OFFICE 45078 [facility] 1 1 [facility] VISIT INTERNAL 15 MED MINUTES [facility] - [facility] 1 [facility] T EMERGENCY 62077 H[facility]RY SHI 1 1 EMERGENCY DEPARTMEN SERVICES T VISIT HIGH/URGE NT SEVERITY EMERGENCY 07086 [facility] 1 1 [facility]PART[facility] T VISIT MODERATE SEVERITY OFFICE 97756 [facility] CLAUDIA OUTPATIEN 0 0 KELSEA BOUCHER T VISIT INTERNAL 15 MEDI MINUTES EMERGENCY 07502 H[facility]RY REDDY DEPT 0 0 EMERGENCY RANJIT VISIT SERVICES HIGH SEVERITY& THREAT FUNCJ OFFICE 41386 [facility] ANUSHA OUTPATIEN 0 0 KELSEA TRONCOSO T VISIT INTERNAL 25 MEDI MINUTES OFFICE 85278 [facility], OUTPATIEN 0 0 KELSEA RICKY A T VISIT INTERNAL 15 MED MINUTES OFFICE 03447 [facility] MCKEMIE OUTPATIEN 0 0 KELSEA SALDANA, T VISIT INTERNAL CHANDAN F 15 MED MINUTES [facility] - 9 9 [facility] T OFFICE 98758 [facility], OUTPATIEN 9 9 [facility] T VISIT INTERNAL 15 MED MINUTES [facility] - 9 9 [facility] T OFFICE 53499 [facility] MCKEMIE OUTPATIEN 9 9 KELSEA SALDANA, T VISIT INTERNAL CHANDAN F 15 MED MINUTES EMERGENCY 18957 HENRY ANN DEPT 9 9 EMERGENCY MATTHEW VISIT SERVICES O HIGH SEVERITY& ASSOCIATE THREAT S FUN [facility] - 9 9 [facility] INC T EMERGENCY 66087 [facility] 9 9 [facility] DEPARTMEN INC T VISIT MODERATE SEVERITY OFFICE 86081 [facility], OUTPATIEN 9 9 [facility] T VISIT INTERNAL 15 MED MINUTES [facility] - 9 9 [facility] T OFFICE 24244 [place] FIOR SANDOVAL 9 9 [place] [facility] T VISIT INTERNAL 15 MED MINUTES HOSPITAL [facility] - 8 8 [facility] OUTPATIEN INC T EMERGENCY 12521 [facility] 8 8 [facility] T VISIT LOW/MODER SEVERITY [facility]OSPITAL [facility] - 8 8 [facility]PATIEN [facility] T OFFICE 43908 [place] [facility] 8 8 KELSEA SALDANA T VISIT INTERNAL CHANDAN F 10 MED MINUTES OFFICE 78066 [facility] [facility] 8 8 [place] A T VISIT INTERNAL 25 MED MINUTES [facility] - 8 8 [facility] [place] 79207 [facility]- LUDY- CONSULTAT 8 8 BERYLBERYL LARA ION KAREN KAREN NEW/ESTAB PATIENT 60 MIN OFFICE 36149 [facility] 8 8 [facility] T [facility]ISIT INC 10 MINUTES HOSPITAL DES[facility] - 8 8 [facility] OUTPATIEN [facility] T OFFICE 11617 ALLRAN ALLRAN CONSULTAT 8 8 JR LES, CORRIE WHITMAN F NEW/ESTAB PATIENT 40 MIN EMERGENCY [id number] DESIR[facility] DEPT 8 8 [facility] VISIT INC HIGH SEVERITY& THREAT [facility] DESIRAE - 8 8 [facility] OUTPATIEN [facility] T EMERGENCY 87677 DESIRAE ANN, 8 8 [facility] O T VISIT PROF SERV MODERATE SEVERITY OFFICE 23112 LICFIOR THOMAS 8 8 [facility] HARDYHEN A T VISIT INTERNAL 15 MED MINUTES OFFICE 21213 LICFIOR OROSCO 8 8 KELSEA VARGAS T VISIT INTERNAL 15 MED MINUTES HOSPITAL [facility]IRAE - 8 8 [facility] T EMERGENCY 17668 [facility], 8 8 [facility] CARE T VISIT PHYSICANS HIGH/URGE [place] NT PSC SEVERITY EMERGENCY 57587 [facility] 8 8 [facility] T VISIT MODERATE [facility]VERITY [facility]OSPITAL [facility] - 8 8 [facility] T OFFICE 36199 [place] [facility] 8 8 [place] [facility] T VISIT INTERNAL 15 MED MINUTES EMERGENCY 30933 DESIRAE 8 8 [facility] T VISIT MODERATE SEVERITY HOSPITAL DESIRAE - 8 8 [facility] T OFFICE [address] OUTPATIEN 8 8 [facility] T VISIT 15 MINUTES HOSPITAL DESIRAE - 8 8 [facility]EN [facility] T EMERGENCY 89638 DESIRAE 8 8 [facility] T VISIT LOW/MODER SEVERITY OFFICE 25743 [place] [facility] 8 [facility] T VISIT INTERNAL CHANDAN F 15 MED MINUTES HOSPITAL DESIRAE - 8 8 [facility] T OFFICE 60474 L[facility] THOMAS 8 8 [facility] T VISIT INTERNAL 15 MED MINUTES EMERGENCY 82536 DESIRAE SMALL, [address] [facility] [place] T VISIT PROF SERV LOW/MODER SEVERITY EMERGENCY 41552 DESIRAE 8 8 [facility] T [facility]ISIT LIMITED/M INOR PROB HOSPITAL [facility]IRAE - 8 8 [facility] INC T OFFICE [address] OUTPATIEN 8 8 [facility] T VISIT 15 MINUTES HOSPITAL [facility] - 8 8 [facility] INC T
--- OUTSIDE RECORDS SUMMARY | 2017-01-09 20:58 | External Medical Summary Rpt ---
Author Author , KELTON MELARA Address Unknown Phone [email or web address] Care Team Providers Care Assistant Boys Track Coach Name Role Phone ALFARIS MOH, ALFARIS Unavailable [...] Unavailable RANJIT BARRY RANJIT, BARRY Unavailable Unavailable RANJTI AGNE SHI, ANGE JOSE GUADALUPE Unavailable Unavailable ANDREE MONTALVO, Unavailable Unavailable ANDREE MONTALVO [facility] Unavailable Unavailable [facility]END, [facility] Unavailable Unavailable [facility], [facility] Unavailable Unavailable INC, [facility] Unavailable Unavailable HOSPITAL P, [facility] SAM SANDOVAL HARVEY, Unavailable Unavailable SAM VASQUEZ, DICKSON VASQUEZ Unavailable Unavailable ANUSHA KARYNA, ANUSHA Unavailable Unavailable NAN ARACELIBERYL, Unavailable Unavailable DEREK STAFFORD, NYDIA [facility] Unavailable Unavailable ROBY, [facility] & Unavailable Unavailable [facility], [facility] & [facility] Unavailable Unavailable IMAGING ASS, [facility] GERSON, NAYELI E, Unavailable Unavailable GERSON, NAYELI E [facility] Unavailable Unavailable [facility], [facility] Unavailable Unavailable [facility], [facility] CALVIN JUAN, CALVIN Unavailable Unavailable JUAN [facility] Unavailable Unavailable SERVICES, [facility] BROCK CLA, Unavailable Unavailable BROCK [...] PHARM #[id number] [facility] Unavailable Unavailable [id number] [address] [id number], [facility] [id number] # [id number] [facility], Unavailable Unavailable [facility] JOHN T, SURENDRA, Unavailable Unavailable PRATIMA DANIELSON V, Unavailable Unavailable PRATIMA XAVIER V SOKAN, MATTHEW O, Unavailable Unavailable SOKAN, MATTHEW O [facility] Unavailable Unavailable [facility] JIAN GUERRA, JIAN GUERRA Unavailable Unavailable JIAN GUERRA, JIAN GUERRA Unavailable Unavailable Purpose Continuity of Care Document - 08-25-2007 through 2016 Problems Code Diagnosis DOS Provider Status 7231 CERVICALGIA 06-22-2014 [facility] 7245 UNSPECIFIED 06-22-2014 [facility] P E8889 UNSPECIFIED 06-22-2014 [facility] P 5990 URINARY 10-11-2013 JIAN GUERRA TRACT INFECTION SITE NOT SPECIFIED 58719 HEMATURIA 10-11-2013 ISABELLA UNSPECIFIED PAL 7881 DYSURIA 10-11-2013 JIAN GUERRA 58943 ABDOMINAL 10-11-2013 ISABELLA PAIN, PAL UNSPECIFIED SITE 01971 CHEST PAIN 09-22-2013 ISABELLA UNSPECIFIED PAL 86049 OTHER CHEST 09-22-2013 BARRY RANJIT PAIN 95184 ASTHMA, 09-14-2013 BARRY RANJIT UNSPECIFIED , UNSPECIFIED [...] K ACC OTH STATNRY OBJ W/O FALL 89875 ESOPHAGEAL 10-11-2011 IGGY SALDANA REFLUX LEIA 77509 VOMITING 09-07-2011 BESS[facility] ALLI ALONE 87400 INSOMNIA 08-03-2011 [facility] ALLI UNSPECIFIED 34412 OTHER 08-03-2011 [facility] FATIGUE INC 64467 REGULAR 02-20-2011 [facility] ASTIGMATISM VISION V069 NEED PROPH 12-25-2010 [facility] CO VACCINATION HEALTH W/UNSPEC CENTER COMB VACCINE 9224 CONTUSION 12-21-2010 [facility] ORGANS SERVICES 463 ACUTE 09-25-2010 [facility] TONSILLITIS VALLEY INTERNAL MED 490 BRONCHITIS 09-25-2010 [facility] NOT VALLEY SPECIFIED INTERNAL ACUTE OR MED CHRONIC 38273 PHOTOKERATI 07-10-2010 [facility] TIS [facility] SERVICES 0999 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 INTERNAL MEDI 04621 OTH 04-27-2010 [facility] MIGRAINE VALLEY W/O INTERNAL INTRACTABL MEDI W/STATUS MIGRAINOSUS 9949 OTHER 04-27-2010 [facility] EFFECTS OF VALLEY EXTERNAL INTERNAL CAUSES MEDI 82965 MIGRAINE 04-21-2010 [facility] UNSP W/O EMERGENCY INTRACT W/O SERVICES STATUS MIGRAINOSUS 7802 SYNCOPE AND 04-21-2010 [facility] COLLAPSE EMERGENCY SERVICES 6820 CELLULITIS 10-03-2009 [facility] AND ABSCESS VALLEY OF FACE INTERNAL MEDI 7061 OTHER ACNE 10-03-2009 [facility] INTERNAL MEDI 92300 ABDOMINAL 10-03-2009 [facility] PAIN RIGHT VAL[facility] LOWER INTERNAL QUADRANT MEDI 3829 UNSPECIFIED 08-04-2009 [facility] OTITIS VALLEY MEDIA INTERNAL MED 5589 OTH&UNSPEC 08-04-2009 [facility] NONINFECTIO VALLEY US INTERNAL GASTROENTER MED ITIS&COLITI S 4739 UNSPECIFIED 07-21-2009 [facility] SINUSITIS [facility]LEY INTERNAL MED 55027 HYPERTROPHY 07-21-2009 [facility] OF TONSILS VALLEY ALONE INTERNAL MED 4871 INFLUENZA 04-11-2009 [facility] WITH OTHER [facility] RESPIRATORY INTERNAL MED MANIFESTATI ONS 462 ACUTE 02-27-2009 [facility] PHARYNGITIS [facility] INTERNAL MED 7291 UNSPECIFIED 02-27-2009 [facility] MYALGIA [facility] AND INTERNAL MYOSITIS MED 48573 FEVER 02-27-2009 [facility] UNSPECIFIED [facility] INTERNAL MED 2892 NONSPECIFIC 02-06-2009 [facility] EMERGENCY SERVICES LYMPHADENIT ASSOCIATES IS 8472 LUMBAR 11-11-2008 [facility] SPRAIN AND VALLEY STRAIN INTERNAL MED 4659 ACUTE URIS 08-31-2008 [facility] OF [facility] UNSPECIFIED INTERNAL SITE MED 68024 HERPETIC 02-19-2008 [facility] INFECTION VALLEY OF PENIS INTERNAL MED V745 SCREENING 02-19-2008 [facility] EXAMINATION [facility] FOR INTERNAL VENEREAL MED DISEASE 84050 OTHER 02-09-2008 [facility] PENILE [facility] ANOMALIES INTERNAL MED 50769 NAUSEA WITH 12-16-2007 [facility] [place] VOMITING RADIOLOGY 48915 ABDOMINAL 10-09-2007 [facility] PAIN RIGHT [facility] UPPER INTERNAL QUADRANT MED 46460 CHOLECYSTIT 10-01-2007 [facility] IS, [facility] UNSPECIFIED INTERNAL MED 14489 ABDOMINAL 09-30-2007 [facility] PAIN, [facility] EPIGASTRIC INC 87429 UNSPECIFIED 09-26-2007 [facility] PHYSICANS N [place] PSC 7856 ENLARGEMENT 09-26-2007 [facility] [place] OF LYMPH RADIOLOGY NODES 2774 DISORDERS 09-25-2007 [facility] [place] [facility]ILIR[facility] URGENT EXCRETION TREATMENT ASSOC 4019 UNSPECIFIED 09-25-2007 [facility] [place] HYPERTENSIO URGENT N TREATMENT ASSOC 7824 JAUNDICE 09-25-2007 [facility] 4660 ACUTE 09-08-2007 [facility] BRONCHITIS [facility] INC 52253 CLOSED 09-08-2007 [facility] FRACTURE OF [facility]P UPPER END INC OF FIB[place]A 20363 CLOSED 09-08-2007 [facility] F[facility] OF MEDICAL IMAGING UNSPECIFIED ASSOCIATES PART OF F[place] 0340 STREPTOCOCC 09-01-2007 [facility] AL SORE [facility] THROAT INTERNAL MED 7806 FEVER & OTH 09-01-2007 [facility] PHYSIOLOGIC INTERNAL MED [place]URB[place] 76349 PAIN IN 08-25-2007 [place], MEDICAL LOWER LEG [facility] 7295 [...] 34 2- 2- 00 88 ON ve NJ 59 20 20 AI ED 31 11 [...] 93 BL 8 ET # 03 93 NJ 50 11 01 2 30 30 RI 85 MC Ac OP 11 -1 -0 .0 TE 80 KE ti RA 10 2- 7- 00 10 TN ve NO 46 20 20 AI E LO 80 10 11 D JR L 3 PH 20 AR WI MA LL MG CY IA M TA 03 F BL 93 ET 8 # 03 93 NJ 50 11 11 2 30 30 RI 85 MC Ac OP 11 -1 -1 .0 TE 80 KE ti RA 10 2- 2- 00 10 TN ve NO 46 20 20 AI E [...] 8 TA # BL 03 ET 93 NJ 00 04 04 15 4 RI 83 [...] #3 CA 93 PS 8 UL E NJ 00 02 02 00 12 3 RI 82 HU Ac OM 78 -0 -1 .0 TE 02 NT ti ET 11 16 ER ve CERNA 83 20 20 AI ZI 00 10 10 D NA NE 1 PH NC AR Y 25 M C #3 MG 93 8 TA BL ET TA 00 10 11 00 10 5 RI 80 MC Ac TN 00 -2 -0 .0 TE 59 KE ti FL 40 7- 5- 00 71 TN ve U 80 20 20 AI E 75 08 09 09 D JR 5 PH MG AR WI M LL CA #3 IA PS 93 M UL 8 F E CI 00 08 09 00 20 10 RI 79 SO Ac NJ 17 -2 -1 .0 TE 69 KA [...] AI ZA [address] NJ 0 PH EP IN AR HE E [...] 0 93 MG 8 TA BL ET NJ 37 04 04 00 28 28 RI [...] 93 10 8 0 MG CA P NJ 00 03 04 00 20 5 RI [...] 34 6- 0- 00 77 Av ve NJ 59 20 20 AI ai ED 31 [...] Procedure [place] [address] [place] CERVICAL 5 MEDICAL PAL SPINE W/[place] [address] ISABELLA ISABELLA ABDOMEN & 4 PAL PAL PELVIS W/O CONTRAST MATERIAL ECG 41451 BARRY ARELLANOEY ROUTINE 4 RANJIT RANJIT ECG W/LEAST 12 LDS I&R ONLY RADIOLOGI 89757 ISABELLA ISABELLA C EXAM 4 PAL PAL CHEST 2 VIEWS FRONTAL&L ATERAL INJECTION J0690 [facility] 2 HOSP HOSP CEFAZOLIN [place] SODIUM LE LE 500 MG INJECTION J0696 [address] CEFTRIAXO & & NE SODIUM STMARY'S STMARY'S PER 250 H H MG INJECTION J2270 [facility] MORPHINE 2 HOSP HOSP SULFATE [place] UP TO 10 LE LE MG THERAPEUT 08693 [facility] IC 2 HOSP HOSP PROPHYLAC [place] TIC/DX LE LE INJECTION SUBQ/IM SMPL [address] SCALP/NEC & & K/AX/TERRENCE STMARY'S STMARY'S T/TRUNK H H 2.6-7.5CM RPR/ADVMN 88692 ZULEIKA TO T FLXR 2 EVELYN LENNOX HIGH TDN N/Z/2 W/O FR GRAFT EA TENDON REPAIR [address] TENDON & & FINGER STMARY'S STMARY'S W/O GRAFT H H EACH RCNSTJ 09659 OZYADA OZYUREKOG TENDON 2 EVELYN LENNOX EVELYN LENNOX HORTENCIA EACH W/LOCAL TISSUES SPX RADEX 85624 ONOFRE ELLIOT ONOFRE ELLIOT HAND 2 MINIMUM 3 VIEWS COMPREHEN 13039 [facility] SIVE 2 [facility] [place] [address] [facility] THYROID 2 [facility] STIMULATI INC INC NG HORMONE TSH CYANOCOBA 96242 [facility] MERRILL CORETTA 2 [facility] VITAMIN INC INC B-12 BLOOD 34090 [facility] MER[facility]LL COUNT 2 [facility] COMPLETE INC INC AUTO&AUTO DIFRNTL WBC FRAMES V2020 [facility] PURCHASES 1 VISION 1 VISN V2103 [facility] PLANO 1 VISION TO+/-4.00 D SPHER 0.12-2.00 D CYL EA RPR&REFIT 19731 [facility] G 1 VISION SPECTACLE S EXCEPT APHAKIA OPHTH 35685 [facility]MAN CHRISTINA [facility]ICAL 1 VISION XM&EVAL COMPRHNSV ESTAB PT 1/> TDAP 53816 [facility] MERRILL VACCINE 7 1 [employer] [facility] YRS/> IM CENTER CENTER ABEL 27298 [facility] MERRILL VACCINE 1 [employer]pl[employer] LIVE FOR CENTER CENTER SUBCUTANE OUS USE MCV4 53040 [facility] MERRILL MENACWY 1 [employer] [facility] CONJ VACC CENTER CENTER GRPS ACYW-135 IM USE URNLS DIP 33517 [facility] MERRILL 1 [facility] STICK/TAB INC INC LET REAGENT AUTO MICROSCOP Y IAADI 29453 DES[facility]AE [facility] INFLUENZA 9 [facility] B VIRUS INC INC IAADI 93041 DESIRAE MERRILL INFFLUENZ 9 MEM HOS[facility] MEM [facility]OS[facility] A A VIRUS INC INC IAADI 76906 DES[facility] MERRILL INFFLUENZ 9 MEM [facility]OS[facility] A A VIRUS INC INC IAADI 78716 [facility] MERRILL INFLUENZA 9 [facility] [place] [address] [facility] MERRILL STREPTOCO 9 [facility] CCUS INC INC GROUP A CUL BACT 48986 [facility] MERRILL XCPT 9 [facility] URINE INC INC BLOOD/STO OL AEROBIC ISOL 3D 21476 [place] ANN-MARIE, RENDERING 9 MEDICAL JOSE P IMAGING W/INTERP& ASSOCIATE POSTPROC S DIFF WORK STATION CT PELVIS 96325 [place] ANN[place], W/O 9 MEDICAL JOSE [place] [address] [facility] TOVARON ABDOMEN 9 [facility] W/O INC INC CONTRAST MATERIAL BLOOD 07276 [facility] DESIRAE COUNT 9 [facility] COMPLETE INC INC AUTO&AUTO DIFRNTL WBC OPHTH 28620 [facility] MEDICAL 9 VISION REMEDIOS M XM&EVAL COMPRHNSV ESTAB PT 1/> 1 VISN V2103 [facility] DAV[place] PLANO 9 VISION REMEDIOS Dietrich TO+/-4.00 D SPHER 0.12-2.00 D CYL EA FRAMES V2020 [facility] PURCHASES 9 VISION REMEDIOS M FITTING 86371 [facility] DAVIDSON, SPECTACLE 9 VISION REMEDIOS Dietrich S XCPT APHAKIA MONOFOCAL IAADI 17318 [facility]AE DESIRAE INFFLUENZ 9 MEM [facility]OS[facility] A A VIRUS INC INC IAADI 84298 DES[facility]AE DESIRAE INFLUENZA 9 [facility] [place] [address] EDSIRAE MERRILL STREPTOCO 9 MEM H[facility] CCUS INC INC GROUP A CLOSURE 8659 [facility]AE [facility] SKIN&SUBC 8 MEM [facility] UTANEOUS INC INC TISSUE OTHER SITES ANTIBODY 82790 [facility] MERRILL HERPES 8 [facility] SMPLX INC INC TYPE 1 ANTIBODY 96006 [facility] MERRILL VIRUS NOT 8 [facility] INC INC ELSEWHERE SPECIFIFE D GASTRIC 83501 [facility] [place] JESUS, EMPTYING 8 RADIOLOGY J IMAGING STUDY OPHTH 12293 DUC XAVIER, MEDICAL 8 PRATIMA V PRATIMA V XM&EVAL COMPRHNSV ESTAB PT 1/> [place] [address] [facility] MERRILL TRACT UPR 8 [facility] W/SM INT INC [place] [address] YULIANA ARCHULETA W/WO 8 MEDICAL JOSE Estrella GLUCOSE IMAGING W/SM ASSOCIATE INTEST S FOLLW-THR U THER 25549 [facility] MERRILL PROPH/DX 8 [facility] NJX EA INC INC SEQL IV PUSH SBST/DRUG THER 53448 [facility] MERRILL PROPH/DX 8 [facility] NJX INC INC SUBQ/IM IV NFS 01500 [facility] MERRILL THER 8 [facility] PROPH/DX INC INC 1ST >1 HR BASIC 72257 DES[facility] MERRILL METABOLIC 8 [facility] PANEL INC INC CALCIUM TOTAL RADIOLOGI 62700 Ramu ARCHULETA EXAM 8 MEDICAL JOSE P CHEST 2 IMAGING VIEWS ASSOCIATE FRONTAL&L S ATERAL CREATINE 60022 [facility] KINASE 8 [facility] TOTAL INC INC ECG 06886 [facility] MER[facility]LL ROUTINE 8 [facility] ECG INC INC W/LEAST 12 LDS TRCG ONLY W/O I&R CREATINE 72293 [facility] MERRILL KINASE MB 8 [facility] [place] [address] [facility] MERRILL TROPONIN 8 [facility] QUANTITAT INC INC DARRYL BLOOD 63541 [facility] MERRILL COUNT 8 [facility] COMPLETE INC INC AUTO&AUTO DIFRNTL WBC RHYTHM 71891 [facility] MERRILL ECG 1-3 8 [facility] LEADS INC INC TRACING ONLY W/O I&R ECG 38052 [facility] NIETO, ROUTINE 8 [facility] W/LEAST PROF SERV 12 LDS I&R ONLY HEPATBL 06530 [facility] ARCHULETAX SYS 8 MEDICAL JOSE P IMG IMAGING GLBLDR ASSOCIATE S OBSERVATI 25801 [facility] MCKEMIE ON CARE 8 [facility], DISCHARGE INTERNAL [facility] MED MANAGEMEN T RADEX ABD 02718 HEATHER MASON, COMPL 8 MEDICAL PADMINI AQT ABD IMAGING W/S/E/D ASSOCIATE VIEWS 1 S VIEW CH INITIAL 05552 [facility] MCKEMIE OBSERVATI 8 [facility], ON INTERNAL [facility] CARE/DAY MED 30 [place] [address] [facility] MAS[facility], ABDOMINAL 8 MEDICAL PADMINI REAL IMAGING TIME ASSOCIATE W/IMAGE S LIMITED SBSQ [address] CARE/DAY URGENT 35 TREATMENT MINUTES ASSOC SBSQ [address] CARE/DAY URGENT 35 TREATMENT MINUTES ASSOC COMPREHEN 59383 [facility] SIVE 8 [facility] [place] [address] [facility] AMYLASE [address] [place] [address] [facility] [place] KATIA, ABDOMEN 8 RADIOLOGY ANDREE D W/[place] [address] [facility] LIPASE 8 [facility] BLOOD 79812 [facility] COUNT 8 [facility] COMPLETE AUTO&AUTO DIFRNTL WBC URNLS DIP [address] STICK/TAB LET REAGENT AUTO MICROSCOP Y CT PELVIS [address] W/CONTRAS T MATERIAL SBSQ [address] CARE/DAY URGENT 35 TREATMENT MINUTES ASSOC ECG 08892 DESIRAE MERRILL ROUTINE 8 [facility] ECG INC INC W/LEAST 12 LDS TRCG ONLY W/O I&R ECG 51268 [facility] NIETO, ROUTINE 8 [facility] W/LEAST PROF SERV 12 LDS I&R ONLY RADIOLOGI 19832 [facility] MERRILL C EXAM 8 [facility] CHEST 2 INC INC VIEWS FRONTAL&L ATERAL PRESSURIZ 72138 DES[facility]AE MERRILL ED/NONPRE 8 [facility] SSURIZED INC INC INHALATIO N TREATMENT RADIOLOGI 35534 [facility] MERRILL C EXAM 8 [facility] CHEST 2 INC INC VIEWS FRONTAL&L ATERAL RADIOLOGI 33333 [facility] MERRILL C 8 [facility] EXAMINATI INC INC ON KNEE 1/2 VIEWS IAADIADOO 27807 Jerica GUTIERREZ A STREPTOC[place] [address] DES[facility]AE MERRILL STREPTOCO 8 [facility] CCUS INC INC GROUP A RADIOLOGI 43883 Ramu ARCHULETA 8 MEDICAL JOSE P EXAMINATI IMAGING ON TIBIA ASSOCIATE & FIBULA S 2 VIEWS RADIOLOGI 01691 Ramu ARCHULETA MEDICAL JOSE P EXAMINATI IMAGING ON KNEE 3 ASSOCIATE VIEWS S Encounters Encounter Start End Date Code Location Performer Type Date HOSPITAL DESIRAE - 5 5 [facility] OUTPATIEN INC T EMERGENCY 57467 DESIRAE SIMPSON 5 5 [facility] T VISIT P LOW/MODER SEVERITY EMERGENCY 82161 JIAN GUERRA DEPT 4 4 VISIT HIGH SEVERITY& THREAT FUNCJ EMERGENCY 22232 BARRY REDDY 4 4 RANJIT RANJIT [facility] T VISIT HIGH/URGE NT SEVERITY EMERGENCY 07531 BARRY REDDY 4 4 [facility] T VISIT MODERATE SEVERITY EMERGENCY 66244 ALFARIS ALFARIS 4 4 [facility] T VISIT HIGH/URGE NT SEVERITY OFFICE 23888 [facility] SANDER SANDER T VISIT 10 MINUTES OFFICE 37104 [facility] OUTPATIEN 2 2 ALLI ALLI T VISIT 15 MINUTES OFFICE 92299 [facility] OUTPATIEN 2 2 ALLI ALLI T VISIT 15 MINUTES OFFICE 16587 [facility] OUTPATIEN 2 2 ALLI ALLI T VISIT 15 MINUTES OFFICE 03702 [facility] OUTPATIEN 2 2 ALLI ALLI T VISIT 15 MINUTES OFFICE 73703 [facility] OUTPATIEN 2 2 ALLI ALLI T VISIT 15 MINUTES EMERGENCY 85732 [facility] DEPT 2 2 HOSP VISIT [facility] HIGH LE SEVERITY& THREAT [facility] 2 2 H[facility]PATI[facility] & [facility] 2 2 H[facility]PITAL DEPARTMEN & T VISIT [facility] SEVERITY EMERGENCY 08943 VINOD BROCK 2 2 CLA CLA DEPARTMEN T VISIT HIGH/URGE NT SEVERITY OFFICE 50928 MCK[facility] MCKEMIE OUTPATIEN 2 2 JR LEIA JR LEIA T VISIT 15 MINUTES OFFICE 04109 [facility]ON OUTPATIEN 2 2 ALLI ALLI T VISIT 15 MINUTES OFFICE 14659 [facility] OUTPATIEN 2 2 ALLI ALLI T VISIT 25 MINUTES HOSPITAL DESIRAE - 2 2 [facility] OUTPATIEN INC T EMERGENCY 99666 [facility] 1 1 [facility] DEPARTMEN INC T VISIT LIMITED/M INOR PROB HOSPITAL DESIRAE - 1 1 [facility] OUTPATIEN INC T EMERGENCY 65773 HENRY REDDY [address] [facility] DEPARTMEN SERVICES T VISIT HIGH/URGE NT SEVERITY OFFICE 88547 [facility] BESSON OUTPATIEN 1 1 [facility] T VISIT INTERNAL 15 MED MINUTES HOSPITAL DESIRAE - 1 1 [facility] OUTPATIEN INC T EMERGENCY 26877 HENRY SHI 1 1 EMERGENCY DEPARTMEN SERVICES T VISIT HIGH/URGE NT SEVERITY EMERGENCY 57789 [facility] 1 1 [facility] DEPARTMEN INC T VISIT MODERATE SEVERITY OFFICE 49663 [facility] CLAUDIA OUTPATIEN 0 0 KELSEA BOUCHER T VISIT INTERNAL 15 MEDI MINUTES EMERGENCY 34509 HENRY REDDY DEPT 0 0 EMERGENCY RANJIT VISIT SERVICES HIGH SEVERITY& THREAT FUNCJ OFFICE 20409 [facility] ANUSHA OUTPATIEN 0 0 KELSEA TRONCOSO T VISIT INTERNAL 25 MEDI MINUTES OFFICE 71453 [facility] BESSON, OUTPATIEN 0 0 KELSEA RICKY A T VISIT INTERNAL 15 MED MINUTES OFFICE 05821 [facility] MCKEMIE OUTPATIEN 0 0 KELSEA SALDANA, T VISIT INTERNAL CHANDAN F 15 MED MINUTES HOSPITAL [facility]AE - 9 9 [facility] OUTPATIEN INC T OFFICE 43241 [facility] BESSON, OUTPATIEN 9 9 [facility] RICKY A T VISIT INTERNAL 15 MED MINUTES HOSPITAL DESIRAE - 9 9 [facility] OUTPATIEN INC T OFFICE 43837 [facility] MCKEMIE OUTPATIEN 9 9 KELESA SALDANA, T VISIT INTERNAL CHANDAN F 15 MED MINUTES EMERGENCY 22932 HENRY ANN DEPT 9 9 EMERGENCY MATTHEW VISIT SERVICES O HIGH SEVERITY& ASSOCIATE THREAT S FUN HOSPITAL DESIRAE - 9 9 [facility] OUTPATIEN INC T EMERGENCY 83719 [facility] 9 9 [facility] DEPARTMEN INC T VISIT MODERATE SEVERITY OFFICE 94773 [facility] BESSON, OUTPATIEN 9 9 [facility] RICK[facility] A T VISIT INTERNAL 15 MED MINUTES HOSPITAL DESIRAE - 9 9 [facility] OUTPATIEN INC T OFFICE 06074 [facility] FIOR SANDOVAL 9 9 [facility] T VISIT INTERNAL 15 MED MINUTES HOSPITAL DESIRAE - 8 8 [facility] OUTPATIEN INC T EMERGENCY 35500 DESIRAE 8 8 [facility] T VISIT LOW/MODER SEVERITY HOSPITAL DESIRAE - 8 8 [facility] OUTPATIEN [facility] T OFFICE 10116 [facility] 8 8 KELSEA SALDANA T VISIT INTERNAL CHANDAN F 10 MED MINUTES OFFICE 80380 [facility] 8 8 [facility] T VISIT INTERNAL 25 MED MINUTES HOSPITAL AKIRAON - 8 8 [facility] T OFFICE 27345 LUDY- LUDY- CONSULTAT 8 8 BERYLBERYL LARA ION KAREN KAREN NEW/ESTAB PATIENT 60 MIN OFFICE 57941 [facility] 8 8 [facility] T VISIT INC 10 MINUTES HOSPITAL DESIRAE - 8 8 [facility] OUTPATIEN [facility] T OFFICE 47654 ALLRAN ALLRAN CONSULTAT 8 8 JR LES, CORRIE WHITMAN F NEW/ESTAB PATIENT 40 MIN EMERGENCY 19475 DES[facility] DEPT 8 8 [facility] VISIT INC HIGH SEVERITY& THREAT FUNCJ HOSPITAL DESIRAE - 8 8 [facility] OUTPATIEN [facility] T EMERGENCY 01990 DESIRAE ANN, 8 8 [facility] O T VISIT PROF SERV MODERATE SEVERITY OFFICE 43970 LICFI[facility] THOMAS 8 8 KELSEA HARDYHEN A T VISIT INTERNAL 15 MED MINUTES OFFICE 91708 [facility]FI[facility] OROSCO 8 8 KELSEA VARGAS T VISIT INTERNAL 15 MED MINUTES HOSPITAL DESIRAE - 8 8 [facility] OUTPATIEN [facility] T EMERGENCY 33686 [facility], 8 8 [facility] T VISIT PHYSICANS HIGH/URGE [place] NT PSC SEVERITY EMERGENCY 16681 [facility] 8 8 [facility] T VISIT MODERATE SEVERITY [facility]OSPITAL [facility] 8 8 [facility] T OFFICE 03396 [facility] 8 8 [facility] T VISIT INTERNAL 15 MED MINUTES EMERGENCY 75660 DESIRAE 8 8 [facility] T VISIT MODERATE [facility]VERITY HOSPITAL [facility] - 8 8 [facility] T OFFICE [id number] OUTPATIEN 8 8 [facility] T VISIT 15 MINUTES HOSPITAL [facility] - 8 8 [facility] OUTPATIEN [facility] T EMERGENCY 47492 DESIRAE 8 8 [facility] T VISIT LOW/MODER SEVERITY OFFICE 34147 [place] [facility] 8 8 [facility], T [facility]ISIT INTERNAL CHANDAN F 15 MED MINUT[facility] HOSPITAL DESIRAE - 8 8 [facility] T OFF[facility] 97916 L[facility] THOMAS 8 8 [facility] T VISIT INTERNAL 15 MED MINUTES EMERGENCY 10279 DESIRAE SMALL, 8 8 [facility] T VISIT PROF SERV LOW/MODER SEVERITY EMERGENCY 85928 DESIRAE 8 8 [facility] T VISIT LIMITED/M INOR PROB HOSPITAL [facility]IRAE - 8 8 [facility] T OFFICE [address] OUTPATIEN 8 8 [facility] T VISIT 15 MINUTES HOSPITAL [facility]AE - 8 8 [facility]
--- OUTSIDE RECORDS SUMMARY | 2017-01-09 20:59 | External Medical Summary Rpt ---
Author Author [employer], [employer] Address Unknown Phone Unavailable
--- OUTSIDE RECORDS SUMMARY | 2017-01-09 20:59 | External Medical Summary Rpt ---
Demographics Preferred Language Tajik Marital Status Unknown Jewish Affiliation Unknown Race Unknown Ethnic Group Unknown Author Author , SRINI MELARA Address Unknown Phone Immunization Unable to retrieve immunization data due to connection failure with Immunization Registry. Please try again later.
--- OUTSIDE RECORDS SUMMARY | 2017-01-09 20:59 | External Medical Summary Rpt ---
Demographics Preferred Language Japanese Marital Status Unknown Advent Affiliation Unknown Race Unknown Ethnic Group Unknown Author Author , SRINI MELARA Address Unknown Phone Immunization Unable to retrieve immunization data due to connection failure with Immunization Registry. Please try again later.
[2017-01-09 21:14] VITALS: BP 133/88
[2017-01-09] MEDS ORDERED: OMEPRAZOLE20 MG PO (21:16)
--- NOTE | 2017-01-09 21:17 | [facility] Report ---
History of Present Issue Date/Time Seen by Provider 01/09/172102 Visit Reason Pt arrived:Walked Presenting Problem:SORE THROAT FOR 1 WEEK. PT STATES HE HAS BEEN VOMITING HIS WHOLE LIFE BECAUSE OF ACID REFLUX. Location if Accident: Onset of symptoms date/time:/ or onset unknown for:MEDICAL HX UNKNOWN Have you (or family members/close friends) recently traveled outside the [place]? N If Yes, where/when: Have you had exposure to infectious disease within the past month? TB? Other? Specify: Here w/ c/o sore throat x 1 week. Persistant. Raw. Worse w/ swallowing. minimal improvement w/ chloraseptic spray, warm fluids and warm salt water gargles. "but just comes right back". No known sick contacts. Denies fever, malaise, PND, cough. Hx of acid reflux x years. Reports used to be on two medications and got to a point where they weren't helping. No insurance then so rather then follow up, quit taking the medication. Hasn't been to a provider in 3-4 years. Night reflux that leads to vomiting. "guarentee nightly". 1 bottle of tums lasting < 1 week. occasionally sees traces of blood in spit/ acid. Denies abdominal pain, nausea or vomiting "other than nightly reflux". Source patient, family Exam Limitations no limitations ALLERGIES Coded Allergies: No Known Drug Allergies (10/11/13) Home Medications Reported Medications No Home Medications (NO HOME MEDICATIONS) 1 X * ONCE History Medical History General CAD? No Angina: Yes SD: No Hypertension? No Hyperlipidemia? No CHF? No COPD? No Asthma? No Anemia? No Hernia? No Thyroid Problems? No Hypothyroidism? No CVA? No Seizures? No Diabetes? No UTI? No Stones? No GB Disease: No Nephritic Syndrome? No Asplenia? No Hepatitis? No Sickle Cell Disease? No Arthritis? No Cataracts? No Glaucoma? No MRSA? Yes TB? No Cancer? No Immunization HX DT/Tetanus 5-10 Years Ago Flu NEVER Pneumonia NEVER Surgical Hx Previous Surgery?Y TEETH FILLINGS IN TEETH R HAND Family History Family HX Diabetes Yes CAD Yes Hypertension Yes Hyperlipidemia Yes Cancer Yes TB Yes Social History Smoking Hx Smoker: Current Every Day Smoker Tobacco: Yes Type Cigarettes Packs/day < 1 Pack Alcohol Alcohol: No Review of Systems All Other Systems Reviewed and Negative Constitutional see HPI Eyes denies drainage ENT see HPI. denies: ear pain, nose discharge, nose congestion. Respiratory denies cough, denies shortness of breath Cardiovascular denies chest pain, denies palpitations Gastrointestinal see HPI Skin denies change in color Psychiatric/Neurological denies headache Physical Exam Vital Signs Vital Signs Date Time Temp Pulse Resp B/P Pulse O2 O2 Flow FiO2 Ox Delivery Rate 01/09 2114 97.2 96 20 133/88 97 01/10 2052 97.2 96 20 133/88 97 General Appearance mild distress (spitting occasionally into cup), obese, sputum clear Eye Exam - bilateral eye normal exam Ear, Nose, Throat normal ENT inspection (x/ mild pharyngeal erythema) Neck non-tender, supple, full range of motion Respiratory Status No: respiratory distress, productive cough, non productive cough. Lung Sounds anterior: lungs clear. posterior: lungs clear. bilateral: lungs clear. Cardiovascular regular rate/rhythm, no peripheral edema, no murmur Gastrointestinal normal bowel sounds, non tender, soft Neurologic alert, oriented x 3 Mental status normal mood/affect Skin normal color, warm/dry Lymphatic no adenopathy Medical Decision Making LABS/Meds/Orders Pt receiving controlled substance in ED? No Results/Orders Laboratory Tests 01/09/17 2100: Group A Strep Screen NOT DETECTED Orders Procedure Date/time Status [facility] STREP SCREEN 01/09 2100 Complete Departure Departure Time of Disposition 2110 Disposition DC Home or Self Care(routine) Clinical Impression Primary Impression: Acute pharyngitis Qualifiers: Pharyngitis/tonsillitis etiology: unspecified etiology Qualified Code: J02.9 - Acute pharyngitis, unspecified Secondary Impressions: Acid reflux disease Qualifiers: Esophagitis presence: esophagitis presence not specified Qualified Code: K21.9 - Gastro-esophageal reflux disease without esophagitis Condition STABLE Referrals KEN,DEONDRE Hansen Call office in morning. Schedule FU for severe acid reflux nightly x years and now acute pharyngitis, possibly as a result. If not in network, call insurance and ask for a list of in network providers. If you need another referral, return to [facility] untilyou establish primary care. Patient Instructions DI for Gastroesophageal Reflux Disease (GERD), DI for Pharyngitis/Tonsillopharyngitis -- Adult, GERD Diet Additional Instructions * acid reflux repeatedly can lead to serious complications as we discussed at length. starting omeprazole, making improvement in diet and Follow up STRONGLY recommended. * No sign of bacterial infection. Likely viral. Virus can take 7-14 days to run their course * Monitor Temp. Seek immediate attention for new onset fever * Encourage fluids, water, gatorade, powerade, pedialyte if /toddler/child * warm salt water gargles * warm fluids * sore throat lozenges * sleep elevated * humidifier/vaporizer * * Your throat swab was sent for culture. Those results are typically sent to your primary care. Be sure to follow up in 2-3 days if no improvement so they can review those results and treat if necessary. If you don't have primary care, I recommend you get one but in the mean time, you will have to return to a walk in clinic. Discharge Counseling Counseled pt/family regarding diagnosis, test results, medications/RX, home care, follow up needs Prescriptions Current Visit Scripts Omeprazole (Omeprazole 20MG) 20 MG PO DAILY #30 ECC at 1504
== END 2017-01-09 21:27 | disposition home or self-care (01) ==
LOC: UTC 20:41
DX: J02.9 Acute pharyngitis, unspecified (principal); K21.9 Gastro-esophageal reflux disease without esophagitis; Z72.0 Tobacco use